=== PATIENT | male | born 1955 | race Caucasian/White ===

== ENCOUNTER → 2017-06-12 08:49 | Outpatient (CLI) | payer BC, SELFPAY ==
[2017-06-12 09:56] LABS: PSA,Total- Diagnostic 3.43 ng/mL (0.0-4.0)
== END ==
PROVIDERS: Family Provider Family Medicine; PCP Family Medicine; Visit Provider Urology
DX: R97.20 Elevated prostate specific antigen [PSA] (principal)
CPT/HCPCS: 36415; 84153

== ENCOUNTER → 2019-01-02 09:24 | Outpatient (CLI) | payer BC, SELFPAY | PROVIDERS: Family Provider Family Medicine; PCP Family Medicine; Referring Provider Urology; Visit Provider Urology | DX: Z12.5 Encounter for screening for malignant neoplasm of prostate (principal) | CPT/HCPCS: 36415; 84153; G0103 ==

== ENCOUNTER → 2019-03-24 08:36 | Outpatient (CLI) | payer BC, SELFPAY | PROVIDERS: PCP Family Medicine; Referring Provider Urology; Visit Provider Urology | DX: N40.1 Benign prostatic hyperplasia with lower urinary tract symptoms (principal) | CPT/HCPCS: 36415; 84403 ==

== ENCOUNTER → 2020-07-05 10:35 | Outpatient (CLI) | payer BC, SELFPAY ==
[2020-07-05 11:59] LABS: PSA,Total - Annual Screen 6.13 ng/mL (0.00-4.00)
== END ==
PROVIDERS: PCP Family Medicine; Referring Provider Urology; Visit Provider Urology
DX: Z12.5 Encounter for screening for malignant neoplasm of prostate (principal)
CPT/HCPCS: 36415; 84153; G0103

== ENCOUNTER 2021-01-12 12:05 | Day surgery (SDC) | payer BC, SELFPAY ==
--- NOTE | 2021-01-10 15:43 | EKG12_ITS ---
Test Reason : PRE-OP Blood Pressure : / mmHG Vent. Rate : 057 BPM Atrial Rate : 057 BPM P-R Int : 128 ms QRS Dur : 096 ms QT Int : 408 ms P-R-T Axes : 029 061 053 degrees QTc Int : 397 ms Sinus bradycardia Otherwise normal ECG Confirmed by LAWRENCE LYNN, ELVIS ([id number]), news copy editor MEGAN BRADFORD ([id number]) on 01/11/2021 10:27:38 AM Referred By: Federico Jack Confirmed By:ELVIS BRAVO MD
[2021-01-10 16:31] LABS: Hemoglobin 13.6 g/dL (13.0-16.5); Mean Corp Hgb Conc 33.2 g/dL (32-36); Mean Corpuscular Hgb 29.3 pg (27.0-32.0); Mean Corpuscular Volume 88.4 fL (80-94); Platelet Count 215 K/mm3 (150-450); Red Blood Count 4.64 M/mm3 (4.6-6.2)
[2021-01-12] VITALS (10 sets, daily range): BP systolic 116–150; BP diastolic 56–94; PULSE 61–100; RESP 16; TEMP 35.8–36.9; O2SAT 95–98; BMI 29.2
--- NOTE | 2021-01-12 | PROS_PTH ---
PATIENT: AILYN MEYERS [place] [facility] [place][id number] AGE/SX: 65/M ROOM: RE01/12/[address]: Dr. Federico Jack MD : 1955 BED: DIS: 01/13/2021 SPEC #: [id number] RECD: 01/13/21 07:08 STATUS: MAR SAVAGE #: [id number] EDGARDO: 01/12/21 00:[address]: Federico Jack DEPT: SURGICAL PATHOLOGY RECD BY: Butch Barnard ENTERED: 01/13/21 08:55 SP TYPE: TURP OTHR DR: Dr. Phuong Fitzpatrick, DO Tissues: Prostate, NOS Procedures: Surgery Specimen Level IV HEADER OPERATION: Cysto, TUR prostate, [employer] PRE-OP DIAGNOSIS: Elevated PSA, BPH with lower urinary tract symptoms, frequency of micturition TISSUE SUBMITTED: Prostate tissue MICROSCOPIC DIAGNOSIS Prostate tissue, TUR: Benign prostatic hyperplasia, glandular and stromal type. Focal chronic inflammation and basal cell hyperplasia. SOCRATES:evy 01/14/2021 MICROSCOPIC DESCRIPTION Slides are reviewed. GROSS DESCRIPTION Received is one container labeled with the patient's name and designated prostate tissue. The specimen consists of multiple irregular fragments of pink-vera, rubbery, soft tissue that in aggregate weigh 28.3 gm and measure in aggregate 6 x 5.5 x 3 cm. Foundry Manager tissue is submitted in ten cassettes. / SOCRATES:evy 01/13/21 TC:5 CPT: 39175
[2021-01-12] MEDS: Lactated Ringers 1,000 ML 100 ML IV (12:35)
[2021-01-12] MEDS: Cefazolin 2 GM in 0.9% Normal Saline 100 ML IV (14:42)
--- NOTE | 2021-01-12 17:00 | PCM.HP.STD ---
HPI - General HPI Narrative AILYN MEYERS, is a 65 M who presents for transurethral resection of the prostate has a history of a very large prostate had a UroLift procedure a few years ago which initially helped but now he is having more problems urinating on a cystoscopy is found to have significant regrowth and obstruction so we can proceed with a TURP understands her risk of surgery involves risk of retrograde ejaculation incontinence bladder control problems risk of bleeding and infection. Also risk of scar tissue formation along the urethral channel and the prostate and the bladder. [facility] Medical History (Updated 01/12/21 @ 16:[address] Federico Jack MD) Alcohol use Cardiology follow-up encounter CPAP (continuous positive airway pressure) dependence Gastric reflux High cholesterol History of stress test Non-smoker Prostate disease Wears hearing aid Home Medications [place]-3 + Vitamin D3 1 cap PO DAILY 01/05/21 [History Last Taken Unknown] atorvastatin 5 mg PO QHS 01/05/21 [History Last Taken Unknown] magnesium 800 mg PO DAILY 01/05/21 [History Last Taken Unknown] zinc 50 mg PO DAILY 01/05/21 [History Last Taken Unknown] ciprofloxacin HCl [Cipro] 500 mg PO BID #14 tab 01/12/21 [Rx Last Taken Unknown] oxycodone-acetaminophen [Endocet] 1 tab PO Q4H PRN 7 Days #14 tab 01/12/21 [Rx Last Taken Unknown] Allergy/AdvReac Type Severity Reaction Status Date / Time No Known Allergies Allergy Verified 01/05/21 09:50 Surgical History (Updated 01/05/21 @ 10:02 by Ana Martin) History of lumbar fusion Hx of colonoscopy Hx of microdiscectomy Hx of wisdom tooth extraction Social History Smoking Status: Never smoker Vital Signs Vital Signs Vital Signs: 01/12/21 12:40 01/12/21 12:50 Temperature 98.3 F Temperature Source Temporal Pulse Rate 62 Respiratory Rate 16 Respiratory Pattern Normal Blood Pressure 148/94 H Blood Pressure Mean 112 Blood Pressure Source Monitor Blood Pressure Position Semi-Fowlers Blood Pressure Location Left Arm Pulse Ox 98 Oxygen Delivery Method Room Air Weight Weight: 106 kg Body Mass Index (BMI) 29.2 Results Lab / Micro Data Result Diagrams: 01/10/21 15:39
--- NOTE | 2021-01-12 17:01 | OP.PCM_ITS ---
Report of Operation Date of Procedure: 01/12/21 Pre-Operative Diagnosis: BPH with obstruction Post-Operative Diagnosis: Same Surgery/Procedure Performed:: Transurethral resection of the prostate Description of Surgical Findings:: Indication is a 65-year-old male has a history of a very large prostate several years ago on consultation he agreed to have a UroLift procedure as a minimally invasive procedure to try to help with urinary symptoms but also maintain sexual function the risk and benefits of this procedure were discussed with the patient initially after the UroLift procedure he had a very good response was urinating much better he was happy with the results but now is having problems again with significant frequency urgency difficulty emptying his bladder slow stream pain with urination on cystoscopy stent found to have significant obstruction so organ to proceed with a TURP and also again to remove the UroLift clips at the time of the surgery. Patient was taken back to the operating room after smooth induction of general anesthesia he was placed in dorsolithotomy position. Anus and testicles were prepped and draped in usual sterile fashion. I went into the bladder with a 24 [place] noncontinuous flow resectoscope. Identified the prostate identified the verumontanum entire length the urethra was normal the left and right ureteral orifice were identified he did have a large prostate with a large median lobe I then for started off with the button and found one of the dimples where the UroLift clip was at the dimple it did not completely overgrown now and has no effect and the channel was obstructive still so I resected this dimple down to I got to the UroLift clips I then grabbed onto the clips with a grasper and I pulled it out but I was as pulling out when I looked back inside the urethra there was a tear along the urethra which is unfortunate so therefore I decided not to pull any other UroLift clips out but just resected with a resectoscope so went back in and after identifying his urethral tear I then went back and packed the past the sphincter and then using the resectoscope I started using the large loop resectoscope and resected the median lobe and the resected the floor of the prostate and then I resected the right lobe of the prostate I had to resect down to the capsule on the right side of the prostate and then the wrist remove the other UroLift clip on the right side as well I then continued resecting the right side and so I resected all the way down to the capsule and all the way down to the sphincter mechanism the verumontanum was identified and none of the resection was passive movement time and also when I looked packs beyond the sphincter and the sphincter was intact. I then went to the left side and started resecting the left-sided at the floor work my way laterally I again came across the pair of UroLift clips on the left side I I carefully resected these and then Ellik out the the clips and then resected down to I got to the attachment of the UroLift clips on the left side kept resecting and then came across the final UroLift clip on the left side again this time I just resected the string on the clip to the clip released and then released remove the clip itself and then kept resecting on the left side I did have a small capsular perforation going deep try to get the UroLift clip out and there was some significant bleeding from this continue with resection of the left side until I get it all cleared out but it took a while to find the bleeding and eventually deep inside the capsular tear there was an arterial bleeder at the increase the coag is much as possible and then cauterized this extensively and the vent finally finally got the bleeding stopped once I did this and the irrigation was more clear and there was no more heavy bleeding so then I resected the rest of the tissue I pulled into the sphincter the sphincter was intact had a nice wide open channel we did a flow test had a wide open flow good good flow and the sphincter mechanism intact so I cauterized the channel to make sure the bleeding is stopped and then there was no obstructive tissue no flapping tissue inside the prostatic channel and then I put a catheter in the bladder is a 22 [place] catheter on continuous irrigation and then we started the irrigation the urine was fairly light pink color. He was taken back to the PACU in good condition I spoke to his family mem phong let him know because of the urethral tear that he is get at the probably have the catheter for several days we could either keep in the hospital for a few days to allow this to heal will go home with a catheter we will see how the bleeding goes afterwards possible to keep in the hospital for a few days allow it to heal. So after the resection was done he was extubated taken back to PACU in good condition and I spoke to the family regarding the findings of surgery. Surgeon: mikala Drains: [address] Admit VTE Documentation VTE Present on Admission: No VTE Mechan Device Prophylaxis: SCD's VTE Pharm Prophylaxis ordered?: No
--- NOTE | 2021-01-12 17:01 | PCM.DC ---
Discharge Instructions Diet Discharge Diet: No restrictions Activity Discharge Activity: Return to Normal Activity and May Not Drive (while taking narcotic pain medications.) Dressing / Incision Call your doctor if you observe: Fever of 101 or Higher Follow Up Care Please Follow Up With: Federico Jack MD When: Call [phone] for an appointment Test Results: Test results from this visit will be discussed in further detail at your follow-up appointment, if applicable. Discharge Plan Admission Primary Reason for Your Visit: turp Attending Provider: Federico Jack Primary Care Provider: Phuong Fitzpatrick Discharge Orders/Prescriptions Prescriptions: New ciprofloxacin HCl [Cipro] 500 mg tablet 500 mg PO BID Qty: 14 RF: 0 oxycodone-acetaminophen [Endocet] 5-325 mg tablet 1 tab PO Q4H PRN (Reason: pain) 7 Days Qty: 14 RF: 0 Continued magnesium 500 mg Tablet 800 mg PO DAILY RF: 0 atorvastatin 10 mg Tablet 5 mg PO QHS RF: 0 zinc 50 mg Tablet 50 mg PO DAILY RF: 0 [place]-3 + Vitamin D3 150-500-200 mg-mg-unit Capsule,Delayed Release(Dr/Ec) 1 cap PO DAILY RF: 0 Discontinued tamsulosin 0.4 mg Capsule 0.4 mg PO BID RF: 0 Referrals / Follow Up: Federico Jack MD [STAFF PHYSICIAN] - Phuong Fitzpatrick DO [Primary Care Provider] - Disposition Disposition (needs filled in before D/C Order can be placed): Home, Self Care
--- NOTE | 2021-01-12 18:56 | PCS.PANDOC ---
PANDEMIC DOCUMENTATION INITIATED: Date: 09/27/2020 Time: 190
[2021-01-12] MEDS: Acetaminophen 325 MG Tablet 650 MG PO (20:14)
[2021-01-12] MEDS: Atorvastatin Calcium 10 MG Tablet 5 MG PO (21:06)
[2021-01-12] MEDS: Ciprofloxacin 500 MG Tablet PO (21:10)
[2021-01-13] MEDS: Lactated Ringers 1,000 ML 100 ML IV (00:18)
[2021-01-13 02:40] VITALS: BMI 29.2
[2021-01-13 02:57] VITALS: BP 116/65; PULSE 71; RESP 16; TEMP 36.5; O2SAT 97
[2021-01-13] MEDS: Acetaminophen 325 MG Tablet 650 MG PO (05:09)
[2021-01-13 06:40] VITALS: BMI 29.2
[2021-01-13 06:47] VITALS: BP 120/72; PULSE 101; RESP 16; TEMP 36.3; O2SAT 98
[2021-01-13 07:34] VITALS: BP 111/70; PULSE 69; RESP 16; TEMP 36.6; O2SAT 97
--- NOTE | 2021-01-13 08:01 | NURSING ---
CBI D/C'D AT THIS TIME
[2021-01-13] MEDS: Magnesium Chloride 64 MG Delay Rel.Tablet 128 MG PO (11:37)
[2021-01-13] MEDS: Ciprofloxacin 500 MG Tablet PO (11:37)
[2021-01-13 12:42] VITALS: BP 139/80; PULSE 81; RESP 18; TEMP 36.7; O2SAT 98
== END 2021-01-13 13:00 | disposition home or self-care (01) ==
LOC: SDC 12:05 → AC 12:06 → MS3 16:55
PROVIDERS: Anesthesiology; PCP Family Medicine; Referring Provider Urology; Visit Provider Urology
PROC: (CPT 52601; principal; 2021-01-12 14:00)
DX: N40.1 Benign prostatic hyperplasia with lower urinary tract symptoms (principal); N13.8 Other obstructive and reflux uropathy; K21.9 Gastro-esophageal reflux disease without esophagitis; E78.00 Pure hypercholesterolemia, unspecified; Z79.899 Other long term (current) drug therapy
CPT/HCPCS: 52601; 36415; 85027; 88305; 93005; J7120; J2405

== ENCOUNTER → 2022-06-08 | Outpatient (CLI) | payer BC, SELFPAY ==
[2022-06-08 10:02] LABS: PSA,Total- Diagnostic 2.56 ng/mL (0.0-4.0)
== END | disposition home or self-care (01) ==
LOC: LAB 08:57
PROVIDERS: PCP Family Medicine; Referring Provider Registered Nurse; Visit Provider Registered Nurse
DX: R97.20 Elevated prostate specific antigen [PSA] (principal)
CPT/HCPCS: 36415; 84153

== ENCOUNTER 2023-06-12 08:26 | Outpatient (CLI) | payer MEDICARE, OTHER, SELFPAY ==
[2023-06-12 14:38] LABS: PSA,Total- Diagnostic 2.24 ng/mL (0.0-4.0)
== END 2023-06-12 23:59 | disposition home or self-care (01) ==
LOC: LAB 08:31
PROVIDERS: PCP Family Medicine; Referring Provider Urology; Visit Provider Urology
DX: Z12.5 Encounter for screening for malignant neoplasm of prostate (principal); R97.20 Elevated prostate specific antigen [PSA]
CPT/HCPCS: 36415; 84153; G0103

== ENCOUNTER → 2024-05-27 | Outpatient (CLI) | payer MEDICARE, OTHER, SELFPAY ==
[2024-05-27 11:01] LABS: PSA,Total- Diagnostic 2.26 ng/mL (0.00-4.00)
== END | disposition home or self-care (01) ==
LOC: LAB 09:11
PROVIDERS: PCP Family Medicine; Referring Provider Nurse Practitioner; Visit Provider Nurse Practitioner
DX: R97.20 Elevated prostate specific antigen [PSA] (principal)
CPT/HCPCS: 36415; 84153